=== PATIENT | female | born 1960 | race African-American/Black ===

== ENCOUNTER 2020-01-02 09:27 | Outpatient (CLI) | payer MEDICARE, MEDICAID, SELFPAY ==
--- NOTE | 2020-01-02 10:46 | PCRCNOTE ---
UNABLE TO COMPLETE METHACHOLINE CHALLENGE. PT HAS FEV1 OF 50% WITH PRE-SPIROMETRY TRIALS. THIS IS A ABSOLUTE CONTRAINDICATION PER PROTOCOL. LEFT MSG WITH YAW AT DR OFFICE FOR GRACY KAHN NP. PRIOR COMPLETE PFT DONE AT [facility].
== END 2020-01-02 09:28 | disposition home or self-care (01) ==
PROVIDERS: Visit Provider Nurse Practitioner Gerontology
DX: J45.909 Unspecified asthma, uncomplicated (principal)
CPT/HCPCS: 99199; J0171; J7674